=== PATIENT | male | born 1965 | race Caucasian/White ===

== ENCOUNTER 2019-07-12 18:35 | Observation (INO) | payer MEDICARE, MEDICAID ==
--- NOTE | 2019-07-12 18:46 | EDM.PDOC ---
ED HPI GENERAL MEDICAL PROBLEM <Angela Dillard - Last Filed: 07/12/19 21:54> - General Source of Information: Reports: EMS, Old Records History Limitations: Reports: No Limitations <ClaudiaSharrijania - Last Filed: 07/14/19 19:25> - General Chief Complaint: Behavioral/Psych Stated Complaint: POSIBBLE OVERDOSE Time Seen by Provider: 07/12/19 18:46 - History of Present Illness INITIAL COMMENTS - FREE TEXT/NARRATIVE: Patient is 53-year-old male brought in by EMS for complaints of altered mental status and concerns of a possible overdose. Per EMS, they received from: Patient was in his apartment. He found the patient to be minimally responsive. Patient was given 2 mg of Narcan intranasally with some increased responsiveness. The patient was combative with them spitting at them but not saying anything. Patient was somewhat following commands. They found numerous medications in his apartment and brought them with him. Pmhx: Unknown Pshx: Unknown Family Hx: noncontributory Drug and alcohol use unknown Review of systems unable to obtain secondary to mental status I have reviewed the triage vital signs Const: Appears older than stated age, in handcuffs repeatedly attempting to spit at staff and only partially following commands Eyes: Pupils are 4 mm and reactive bilaterally. No gaze deviation. No conjunctival injection HENT: NCAT, Neck supple without meningismus CV: RRR, Warm, well-perfused extremities RESP: CTAB, Unlabored respiratory effort GI: soft, non-tender, non-distended, no masses MSK: No gross deformities appreciated Skin: Warm, dry. No rashes Neuro: Awake but not alert. Moving all 4 extremities Psych: Unable to assess Assessment and plan: Patient is a 53-year-old male presents to the ER for altered mental status. On arrival in the ER, patient had normal fingerstick, normal vital signs but was agitated and noncooperative. History was unable to be obtained from the patient and only history was given by EMS. Patient required Haldol and Versed for chemical sedation while labs were performed. Broad differential diagnosis considered in the undifferentiated patient however overdoses higher on the differential given response to Narcan. Labs performed to examine for electrolyte abnormalities, hepatorenal dysfunction, salicylate and acetaminophen toxicity as well as TSH for thyrotoxicosis. CT of the head will be performed to look for evidence of intracranial hemorrhage. Patient will be closely monitored by nursing staff as well as incoming overnight talk will follow-up these tests and reexamine the patient if he becomes more alert. ( Manuel Taylor) - Related Data Allergies Allergy/AdvReac Type Severity Reaction Status Date / Time Unable to Assess Allergy Unverified 07/12/19 18:45 Home Meds: Home Meds . [Unable to Verify Home Med List] 07/12/19 [History] ED ROS GENERAL - Review of Systems Review Of Systems: See Below <Manuel Taylor - Last Filed: 07/14/19 19:25> - Physical Exam Exam: See Below <Manuel Taylor - Last Filed: 07/14/19 19:25> EKG INTERPRETATION EKG Date: 07/12/19 Time: 19:24 Rhythm: NSR [place]: RAD-Right [place] Deviation P-Wave: Present QRS: Normal QT: Normal <Angela Dillard - Last Filed: 07/12/19 21:54> <Manuel Taylor - Last Filed: 07/14/19 19:25> EKG Interpretation Comments: minimal non-acute st elevation v1-4 (Angela Dillard) Course <Angela Dillard - Last Filed: 07/12/19 21:54> <Manuel Taylor - Last Filed: 07/14/19 19:25> - Vital Signs Text/Narrative:: Pt signed out to myself at [address] and labs reviewed. UDS positive for benzos (UA was obtained after he had received Versed) . Ct head unremarkable. He became combative/thrashing and risk to himself and staff. Unable to be verbally deescalated, required additional Haldol 5 mg and Ativan 2 mg IM. Became briefly hypotensive after administration of meds which responded well to IVF Pt hemodynamically stable. Will require admission for possible overdose and observation as I can not medically clear him from a psychiatric point at this time. Case d/w DR. Del Rio who kindly agrees to admit for obs to ICU (Angela Dillard) Last Recorded V/S: Last Vital Signs Temp 36.2 C 07/13/19 04:00 Pulse 62 07/12/19 22:00 Resp 10 L 07/13/19 06:00 BP 221/143 H 07/13/19 06:00 Pulse Ox 95 07/13/19 06:00 - Orders/Labs/Meds Labs: Laboratory Tests 07/12/19 07/12/19 07/12/19 Range/Units 19:04 19:04 19:04 WBC 11.86 H (4.0-11.0) K/uL RBC 4.56 (4.50-5.90) M/uL Hgb 12.9 L (13.0-17.0) g/dL Hct 40.0 (38.0-50.0) % MCV 87.7 (80.0-98.0) fL MCH 28.3 (27.0-32.0) pg MCHC 32.3 (31.0-37.0) g/dL RDW Std Deviation 43.1 (28.0-62.0) fl RDW Coeff of Karishma 14 (11.0-15.0) % Plt Count 236 (150-400) K/uL MPV 10.90 (7.40-12.00) fL Neut % (Auto) 84.9 H (48.0-80.0) % Lymph % (Auto) 7.7 L (16.0-40.0) % [place] % (Auto) 6.4 (0.0-15.0) % Eos % (Auto) 0.8 (0.0-7.0) % Baso % (Auto) 0.2 (0.0-1.5) % Neut # (Auto) 10.1 H (1.4-5.7) K/uL Lymph # (Auto) 0.9 (0.6-2.4) K/uL [place]iss # (Auto) 0.8 (0.0-0.8) K/uL Eos # (Auto) 0.1 (0.0-0.7) K/uL Baso # (Auto) 0.0 (0.0-0.1) K/uL Nucleated RBC % 0.0 /100WBC Nucleated RBCs # 0 K/uL Sodium 135 L (136-148) mmol/L Potassium 5.1 (3.5-5.1) mmol/L Chloride 101 (98-107) mmol/L Carbon Dioxide 20.3 L (21.0-32.0) mmol/L BUN 32 H (7.0-18.0) mg/dL Creatinine 2.8 H (0.8-1.3) mg/dL Est Cr Clr Drug Dosing 28.69 mL/min Estimated GFR (MDRD) 23.6 ml/min Glucose 134 H (74-106) mg/dL Calcium 8.6 (8.5-10.1) mg/dL Magnesium 2.2 (1.8-2.4) mg/dL Total Bilirubin 0.3 (0.2-1.0) mg/dL AST 16 (15-37) IU/L ALT 16 (14-63) IU/L Alkaline Phosphatase 100 (46-116) U/L Creatine Kinase 69 (26-308) U/L Total Protein 6.6 (6.4-8.2) g/dL Albumin 3.3 L (3.4-5.0) g/dL Globulin 3.3 (2.6-4.0) g/dL Albumin/Globulin Ratio 1.0 (0.9-1.6) TSH 3rd Generation 1.25 (0.36-3.74) uIU/mL Urine Color Urine Appearance Urine pH (5.0-8.0) Ur Specific [place] (1.001-1.035) Urine Protein (NEGATIVE) mg/dL Urine Glucose (UA) (NEGATIVE) mg/dL Urine Ketones (NEGATIVE) mg/dL Urine Occult Blood (NEGATIVE) Urine Nitrite (NEGATIVE) Urine Bilirubin (NEGATIVE) Urine Urobilinogen (<2.0) EU/dL Ur Leukocyte Esterase (NEGATIVE) U Hyaline Cast (Auto) (0-2/LPF) Urine RBC (0-2/HPF) Urine WBC (0-5/HPF) Ur Epithelial Cells (NONE-FEW) Amorphous Sediment (NEGATIVE) Urine Bacteria (NEGATIVE) Urine Mucus (NONE-MOD) Salicylates 6.0 (0-20) mg/dL Urine Opiates Screen (NEGATIVE) Ur Oxycodone Screen (NEGATIVE) Urine Methadone Screen (NEGATIVE) Acetaminophen < 2.0 ug/mL Ur Barbiturates Screen (NEGATIVE) Ur Phencyclidine Scrn (NEGATIVE) Ur Amphetamine Screen (NEGATIVE) U Methamphetamines Scrn (NEGATIVE) U Benzodiazepines Scrn (NEGATIVE) U Cocaine Metab Screen (NEGATIVE) U Marijuana (THC) Screen (NEGATIVE) Ethyl Alcohol < 3.0 mg/dL 07/12/19 07/12/19 Range/Units 19:48 19:48 WBC (4.0-11.0) K/uL RBC (4.50-5.90) M/uL Hgb (13.0-17.0) g/dL Hct (38.0-50.0) % MCV (80.0-98.0) fL MCH (27.0-32.0) pg MCHC (31.0-37.0) g/dL RDW Std Deviation (28.0-62.0) fl RDW Coeff of Karishma (11.0-15.0) % Plt Count (150-400) K/uL MPV (7.40-12.00) fL Neut % (Auto) (48.0-80.0) % Lymph % (Auto) (16.0-40.0) % [place] % (Auto) (0.0-15.0) % Eos % (Auto) (0.0-7.0) % Baso % (Auto) (0.0-1.5) % Neut # (Auto) (1.4-5.7) K/uL Lymph # (Auto) (0.6-2.4) K/uL [place] # (Auto) (0.0-0.8) K/uL Eos # (Auto) (0.0-0.7) K/uL Baso # (Auto) (0.0-0.1) K/uL Nucleated RBC % /100WBC Nucleated RBCs # K/uL Sodium (136-148) mmol/L Potassium (3.5-5.1) mmol/L Chloride (98-107) mmol/L Carbon Dioxide (21.0-32.0) mmol/L BUN (7.0-18.0) mg/dL Creatinine (0.8-1.3) mg/dL Est Cr Clr Drug Dosing mL/min Estimated GFR (MDRD) ml/min Glucose (74-106) mg/dL Calcium (8.5-10.1) mg/dL Magnesium (1.8-2.4) mg/dL Total Bilirubin (0.2-1.0) mg/dL AST (15-37) IU/L ALT (14-63) IU/L Alkaline Phosphatase (46-116) U/L Creatine Kinase (26-308) U/L Total Protein (6.4-8.2) g/dL Albumin (3.4-5.0) g/dL Globulin (2.6-4.0) g/dL Albumin/Globulin Ratio (0.9-1.6) TSH 3rd Generation (0.36-3.74) uIU/mL Urine Color YELLOW Urine Appearance CLEAR Urine pH 5.0 (5.0-8.0) Ur Specific [place] >= 1.030 (1.001-1.035) Urine Protein NEGATIVE (NEGATIVE) mg/dL Urine Glucose (UA) NEGATIVE (NEGATIVE) mg/dL Urine Ketones NEGATIVE (NEGATIVE) mg/dL Urine Occult Blood NEGATIVE (NEGATIVE) Urine Nitrite NEGATIVE (NEGATIVE) Urine Bilirubin NEGATIVE (NEGATIVE) Urine Urobilinogen 0.2 (<2.0) EU/dL Ur Leukocyte Esterase NEGATIVE (NEGATIVE) U Hyaline Cast (Auto) 1-3 (0-2/LPF) Urine RBC 0-2 (0-2/HPF) Urine WBC 1-3 (0-5/HPF) Ur Epithelial Cells FEW (NONE-FEW) Amorphous Sediment MODERATE (NEGATIVE) Urine Bacteria FEW (NEGATIVE) Urine Mucus LIGHT (NONE-MOD) Salicylates (0-20) mg/dL Urine Opiates Screen POSITIVE (NEGATIVE) Ur Oxycodone Screen NEGATIVE (NEGATIVE) Urine Methadone Screen NEGATIVE (NEGATIVE) Acetaminophen ug/mL Ur Barbiturates Screen NEGATIVE (NEGATIVE) Ur Phencyclidine Scrn NEGATIVE (NEGATIVE) Ur Amphetamine Screen NEGATIVE (NEGATIVE) U Methamphetamines Scrn NEGATIVE (NEGATIVE) U Benzodiazepines Scrn POSITIVE (NEGATIVE) U Cocaine Metab Screen NEGATIVE (NEGATIVE) U Marijuana (THC) Screen NEGATIVE (NEGATIVE) Ethyl Alcohol mg/dL Meds: Medications Discontinued Medications Generic Name Dose Route Start Last Admin Trade Name Freq PRN Reason Stop Dose Admin Albuterol 10 mg 07/13/19 05:22 07/13/19 06:56 Proventil Neb Soln NEB 07/13/19 05:23 Not Given ONETIME ONE Benztropine Mesylate 1 mg 07/12/19 20:04 07/12/19 20:35 Cogentin IVPUSH 07/12/19 20:05 Not Given ONETIME ONE Dextrose/Water 50 ml 07/13/19 05:17 04/17/20 06:28 Dextrose 50% In Water IVPUSH 07/13/19 05:18 50 ml ONETIME ONE Administration Haloperidol Lactate 5 mg 07/12/19 18:51 07/12/19 18:52 Haldol IM 07/12/19 18:52 5 mg ONETIME ONE Administration Haloperidol Lactate Confirm 07/12/19 19:56 07/12/19 20:06 Haldol Administered 07/12/19 19:57 Not Given Dose 5 mg .ROUTE .STK-MED ONE Haloperidol Lactate 5 mg 07/12/19 19:57 07/12/19 20:11 Haldol IM 07/12/19 19:58 Not Given ONETIME ONE Haloperidol Lactate 5 mg 07/12/19 19:57 07/12/19 20:11 Haldol IM 07/12/19 19:58 5 mg ONETIME ONE Administration Haloperidol Lactate 5 mg 07/13/19 04:01 07/13/19 04:05 Haldol IM 07/13/19 04:02 5 mg ONETIME ONE Administration Sodium Chloride 1,000 mls @ 1,000 mls/hr 07/12/19 20:21 07/12/19 20:50 Normal Saline IV 07/12/19 21:20 1,000 mls/hr .Bolus ONE Administration Sodium Chloride 1,000 mls @ 999 mls/hr 07/12/19 21:14 07/12/19 21:16 Normal Saline IV 07/12/19 22:14 999 mls/hr .Bolus ONE Administration Sodium Chloride 1,000 mls @ 999 mls/hr 07/12/19 21:21 07/12/19 21:23 Normal Saline IV 07/12/19 22:21 999 mls/hr .Bolus ONE Administration Sodium Chloride 1,000 mls @ 125 mls/hr 07/12/19 23:15 07/12/19 23:57 Normal Saline IV 125 mls/hr ASDIRECTED ERIC Administration Midazolam HCl 50 mg/ Sodium 50 mls @ 0.5 mls/hr 07/13/19 05:15 Chloride IV TITRATE ERIC Protocol 0.5 MG/HR Propofol Confirm 07/13/19 05:49 07/13/19 06:32 Diprivan 100 Ml Administered 07/13/19 05:50 Not Given Dose 100 mls @ as directed .ROUTE .STK-MED ONE Propofol Confirm 07/13/19 05:51 07/13/19 06:32 Diprivan 100 Ml Administered 07/13/19 05:52 Not Given Dose 100 mls @ as directed .ROUTE .STK-MED ONE Propofol 100 mls @ 8.165 mls/hr 07/13/19 06:30 07/13/19 06:45 Diprivan 100 Ml IV 0 mcg/kg/min TITRATE ERIC 0 mls/hr Titration Protocol 20 MCG/KG/MIN Insulin Human Regular 10 unit 07/13/19 05:17 07/13/19 06:29 Novolin R IVPUSH 07/13/19 05:18 10 unit ONETIME ONE Administration Lorazepam Confirm 07/12/19 19:56 07/12/19 20:06 Ativan Administered 07/12/19 19:57 Not Given Dose 2 mg .ROUTE .STK-MED ONE Lorazepam 2 mg 07/12/19 20:00 07/12/19 20:12 Ativan IM 07/12/19 20:01 2 mg ONETIME ONE Administration Lorazepam 1 mg 07/13/19 04:04 07/13/19 04:39 Ativan IVPUSH 07/13/19 04:05 1 mg ONETIME ONE Administration Lorazepam Confirm 07/13/19 04:43 07/13/19 05:06 Ativan Administered 07/13/19 04:44 Not Given Dose 2 mg .ROUTE .STK-MED ONE Midazolam HCl 2 mg 07/12/19 18:51 07/12/19 18:52 Versed 1 Mg/Ml IVPUSH 07/12/19 18:52 2 mg ONETIME ONE Administration Midazolam HCl 2 mg 07/13/19 04:46 07/13/19 05:08 Versed 1 Mg/Ml IVPUSH 07/13/19 04:47 2 mg ONETIME ONE Administration Midazolam HCl Confirm 07/13/19 04:46 07/13/19 05:06 Versed 1 Mg/Ml Administered 07/13/19 04:47 Not Given Dose 2 mg .ROUTE .STK-MED ONE Midazolam HCl Confirm 07/13/19 05:16 07/13/19 06:15 Versed 1 Mg/Ml Administered 07/13/19 05:17 Not Given Dose 6 mg .ROUTE .STK-MED ONE Midazolam HCl Confirm 07/13/19 06:01 07/13/19 06:14 Versed 1 Mg/Ml Administered 07/13/19 06:02 2 mg Dose Administration 2 mg .ROUTE .STK-MED ONE Naloxone HCl 0.4 mg 07/12/19 23:51 Narcan IVPUSH ONETIME PRN Respiratory Depression Propofol Confirm 07/13/19 05:26 07/13/19 06:32 Diprivan 20 Ml Administered 07/13/19 05:27 Not Given Dose 200 mg .ROUTE .STK-MED ONE Departure - Departure Time of Disposition: 21:54 Condition: Good <Angela Dillard - Last Filed: 07/12/19 21:54> <Manuel Taylor - Last Filed: 07/14/19 19:25> - Departure Disposition: Refer to Observation Clinical Impression: Altered mental status Sepsis Event Note - Focused Exam Date Exam was Performed: 07/12/19 Time Exam was Performed: 21:54 <Angela Dillard - Last Filed: 07/12/19 21:54> - Evaluation Sepsis Screening Result: No Definite Risk - Focused Exam Date Exam was Performed: 07/14/19 Time Exam was Performed: 19:22 <Manuel Taylor - Last Filed: 07/14/19 19:25>
[2019-07-12] MEDS ORDERED: Haloperidol Lactate 5 MG/ML SDV IM ONE ×3 (18:51→19:57)
[2019-07-12] MEDS ORDERED: Midazolam 1 MG/ML 2 ML SDV IVPUSH ONE (18:51)
--- NOTE | 2019-07-12 19:23 | CT ---
Head CT Technique: Multiple axial sections through the brain were obtained. Intravenous contrast was not utilized. Comparison: No previous intracranial imaging is available. Findings: Ventricles along with basal cisterns and sulci over the convexities are within normal limits for the patient's age. No abnormal parenchymal densities are seen. No evidence of intracranial hemorrhage. No midline shift or mass effect is seen. Bone window settings were reviewed. Visualized mastoid sinuses and paranasal sinuses show nothing acute. No acute calvarial abnormality is appreciated. Impression: 1. Nothing acute is appreciated on noncontrast head CT exam. Diagnostic code #1 Study was dictated in MDT
--- NOTE | 2019-07-12 19:29 | CR ---
Chest: AP view of the chest was obtained. Comparison: No prior chest imaging is available. Heart size and mediastinum are normal. Surgical screws are partially seen within the right scapula. Lungs show no acute appearing parenchymal change. Impression: 1. Findings as noted above. 2. Nothing acute is appreciated on AP chest x-ray. Diagnostic code #2 Study was dictated in MDT
[2019-07-12 19:51] LABS: ACETAMINOPHEN < 2.0 ug/mL; BLOOD UREA NITROGEN,BUN 32 mg/dL (7.0-18.0); CARBON DIOXIDE,CO2 20.3 mmol/L (21.0-32.0); CHLORIDE,CL 101 mmol/L (98-107); GLUCOSE RANDOM 134 mg/dL (74-106); POTASSIUM,K 5.1 mmol/L (3.5-5.1); SODIUM,NA 135 mmol/L (136-148)
[2019-07-12] MEDS ORDERED: Haloperidol Lactate 5 MG/ML SDV ONE (19:56)
[2019-07-12] MEDS ORDERED: LORazepam 2 MG/ML SDV ONE (19:56)
[2019-07-12] MEDS ORDERED: LORazepam 2 MG/ML SDV IM ONE (20:00)
[2019-07-12] MEDS ORDERED: Sodium Chloride 0.9% 1,000 ML IV ONE ×3 (20:21→21:21)
[2019-07-12] MEDS ORDERED: Sodium Chloride 0.9% 1,000 ML IV SCH (23:15)
--- NOTE | 2019-07-12 23:22 | PCM.HP.2 ---
H&P History of Present Illness - General Date of Service: 07/12/19 Admit Problem/Dx: Admission Diagnosis/Problem Admission Diagnosis/Problem Altered mental status - History of Present Illness Initial Comments - Free Text/Narative: 53 yo male who was brought by EMS due to concerns of overdose. He was found minimally responsive in his apartment. He was given intranasal narcan. In the ED he was awake and combative given haldol. CT head performed was negative Urine screen shows benzodiazepine and opioids. He had several bottles of medicine non which were empty according to ED physician. At this moment we I am unable to find his medications. Patient did become combative in the ED again and was given haldol, ativan, versed. His blood pressure droped after this but has improved with IV fluid boluses. - Related Data Allergies/Adverse Reactions: Allergies Allergy/AdvReac Type Severity Reaction Status Date / Time Unable to Assess Allergy Unverified 07/12/19 18:45 Home Medications: Home Meds . [Unable to Verify Home Med List] 07/12/19 [History] Past Medical History HEENT History: Reports: Other (See Below) Other HEENT History: unable to assess Cardiovascular History: Reports: Other (See Below) Other Cardiovascular History: unable to assess Respiratory History: Reports: Other (See Below) Other Respiratory History: unable to assess Gastrointestinal History: Reports: Other (See Below) Other Gastrointestinal History: unable to assess Genitourinary History: Reports: Other (See Below) Other Genitourinary History: unable to assess Musculoskeletal History: Reports: Other (See Below) Other Musculoskeletal History: unable to assess Neurological History: Reports: Other (See Below) Other Neuro History: unable to assess Psychiatric History: Reports: Other (See Below) Other Psychiatric History: unable to assess Endocrine/Metabolic History: Reports: Other (See Below) Other Endocrine/Metabolic History: unable to assess Hematologic History: Reports: Other (See Below) Other Hematologic History: unable to assess Immunologic History: Reports: Other (See Below) Other Immunologic History: unable to assess Oncologic (Cancer) History: Reports: Other (See Below) Other Oncologic History: unable to assess Dermatologic History: Reports: Other (See Below) Other Dermatologic History: unable to assess - Infectious Disease History Infectious Disease History: Reports: Other (See Below) Other Infectious Disease History: unable to assess - Past Surgical History HEENT Surgical History: Reports: Other (See Below) Other HEENT Surgeries/Procedures: unable to assess Cardiovascular Surgical History: Reports: Other (See Below) Other Cardiovascular Surgeries/Procedures: unable to assess Respiratory Surgical History: Reports: Other (See Below) Other Respiratory Surgeries/Procedures: unable to assess GI Surgical History: Reports: Other (See Below) Other GI Surgeries/Procedures: unable to assess Male Surgical History: Reports: Other (See Below) Other Male Surgeries/Procedures: unable to assess Endocrine Surgical History: Reports: Other (See Below) Other Endocrine Surgeries/Procedures: unable to assess Neurological Surgical History: Reports: Other (See Below) Other Neurological Surgeries/Procedures: unable to assess Musculoskeletal Surgical History: Reports: Other (See Below) Other Musculoskeletal Surgeries/Procedures:: unable to assess Oncologic Surgical History: Reports: Other (See Below) Other Oncologic Surgeries/Procedures: unable to assess Dermatological Surgical History: Reports: Other (See Below) Social & Family History - Family History Family Medical History: Unobtainable - Tobacco Use Smoking Status *Q: Unknown Ever Smoked - Caffeine Use Caffeine Use Comment: unable to assess H&P Review of Systems - Review of Systems: Review Of Systems: Comprehensive ROS is negative, except as noted in HPI. Exam - Vital Signs Vital Signs: Last Vital Signs Temp 35.9 C L 07/12/19 22:00 Pulse 62 07/12/19 22:00 Resp 20 07/12/19 18:40 BP 89/59 L 07/12/19 22:00 Pulse Ox 100 07/12/19 22:00 Weight: 68.039 kg - Exam General: Sedated HEENT: Mucosa Moist & Gay, Pupils Equal, Pupils Reactive Lungs: Clear to Auscultation, Normal Respiratory Effort Cardiovascular: Regular Rate, Regular Rhythm GI/Abdominal Exam: Soft, Non-Tender, No Mass Extremities: Non-Tender, No Pedal Edema Skin: Warm, Dry, Intact Neurological: Other (obtuned, moving four limbs spotansously ) - Patient Data Lab Results Last 24 hrs: Laboratory Results - last 24 hr 07/12/19 07/12/19 07/12/19 Range/Units 19:04 19:04 19:04 WBC 11.86 H (4.0-11.0) K/uL RBC 4.56 (4.50-5.90) M/uL Hgb 12.9 L (13.0-17.0) g/dL Hct 40.0 (38.0-50.0) % MCV 87.7 (80.0-98.0) fL MCH 28.3 (27.0-32.0) pg MCHC 32.3 (31.0-37.0) g/dL RDW Std Deviation 43.1 (28.0-62.0) fl RDW Coeff of Karishma 14 (11.0-15.0) % Plt Count 236 (150-400) K/uL MPV 10.90 (7.40-12.00) fL Neut % (Auto) 84.9 H (48.0-80.0) % Lymph % (Auto) 7.7 L (16.0-40.0) % [place] % (Auto) 6.4 (0.0-15.0) % Eos % (Auto) 0.8 (0.0-7.0) % Baso % (Auto) 0.2 (0.0-1.5) % Neut # (Auto) 10.1 H (1.4-5.7) K/uL Lymph # (Auto) 0.9 (0.6-2.4) K/uL [place] # (Auto) 0.8 (0.0-0.8) K/uL Eos # (Auto) 0.1 (0.0-0.7) K/uL Baso # (Auto) 0.0 (0.0-0.1) K/uL Nucleated RBC % 0.0 /100WBC Nucleated RBCs # 0 K/uL Lactate (0.20-2.00) mmol/L Sodium 135 L (136-148) mmol/L Potassium 5.1 (3.5-5.1) mmol/L Chloride 101 (98-107) mmol/L Carbon Dioxide 20.3 L (21.0-32.0) mmol/L BUN 32 H (7.0-18.0) mg/dL Creatinine 2.8 H (0.8-1.3) mg/dL Est Cr Clr Drug Dosing 28.69 mL/min Estimated GFR (MDRD) 23.6 ml/min Glucose 134 H (74-106) mg/dL Calcium 8.6 (8.5-10.1) mg/dL Magnesium 2.2 (1.8-2.4) mg/dL Total Bilirubin 0.3 (0.2-1.0) mg/dL AST 16 (15-37) IU/L ALT 16 (14-63) IU/L Alkaline Phosphatase 100 (46-116) U/L Creatine Kinase 69 (26-308) U/L Total Protein 6.6 (6.4-8.2) g/dL Albumin 3.3 L (3.4-5.0) g/dL Globulin 3.3 (2.6-4.0) g/dL Albumin/Globulin Ratio 1.0 (0.9-1.6) TSH 3rd Generation 1.25 (0.36-3.74) uIU/mL Urine Color Urine Appearance Urine pH (5.0-8.0) Ur Specific [place] (1.001-1.035) Urine Protein (NEGATIVE) mg/dL Urine Glucose (UA) (NEGATIVE) mg/dL Urine Ketones (NEGATIVE) mg/dL Urine Occult Blood (NEGATIVE) Urine Nitrite (NEGATIVE) Urine Bilirubin (NEGATIVE) Urine Urobilinogen (<2.0) EU/dL Ur Leukocyte Esterase (NEGATIVE) U Hyaline Cast (Auto) (0-2/LPF) Urine RBC (0-2/HPF) Urine WBC (0-5/HPF) Ur Epithelial Cells (NONE-FEW) Amorphous Sediment (NEGATIVE) Urine Bacteria (NEGATIVE) Urine Mucus (NONE-MOD) Salicylates 6.0 (0-20) mg/dL Urine Opiates Screen (NEGATIVE) Ur Oxycodone Screen (NEGATIVE) Urine Methadone Screen (NEGATIVE) Acetaminophen < 2.0 ug/mL Ur Barbiturates Screen (NEGATIVE) Ur Phencyclidine Scrn (NEGATIVE) Ur Amphetamine Screen (NEGATIVE) U Methamphetamines Scrn (NEGATIVE) U Benzodiazepines Scrn (NEGATIVE) U Cocaine Metab Screen (NEGATIVE) U Marijuana (THC) Screen (NEGATIVE) Ethyl Alcohol < 3.0 mg/dL 07/12/19 07/12/19 07/12/19 Range/Units 19:48 19:48 22:49 WBC (4.0-11.0) K/uL RBC (4.50-5.90) M/uL Hgb (13.0-17.0) g/dL Hct (38.0-50.0) % MCV (80.0-98.0) fL MCH (27.0-32.0) pg MCHC (31.0-37.0) g/dL RDW Std Deviation (28.0-62.0) fl RDW Coeff of Karishma (11.0-15.0) % Plt Count (150-400) K/uL MPV (7.40-12.00) fL Neut % (Auto) (48.0-80.0) % Lymph % (Auto) (16.0-40.0) % [place] % (Auto) (0.0-15.0) % Eos % (Auto) (0.0-7.0) % Baso % (Auto) (0.0-1.5) % Neut # (Auto) (1.4-5.7) K/uL Lymph # (Auto) (0.6-2.4) K/uL [place] # (Auto) (0.0-0.8) K/uL Eos # (Auto) (0.0-0.7) K/uL Baso # (Auto) (0.0-0.1) K/uL Nucleated RBC % /100WBC Nucleated RBCs # K/uL Lactate 1.5 (0.20-2.00) mmol/L Sodium (136-148) mmol/L Potassium (3.5-5.1) mmol/L Chloride (98-107) mmol/L Carbon Dioxide (21.0-32.0) mmol/L BUN (7.0-18.0) mg/dL Creatinine (0.8-1.3) mg/dL Est Cr Clr Drug Dosing mL/min Estimated GFR (MDRD) ml/min Glucose (74-106) mg/dL Calcium (8.5-10.1) mg/dL Magnesium (1.8-2.4) mg/dL Total Bilirubin (0.2-1.0) mg/dL AST (15-37) IU/L ALT (14-63) IU/L Alkaline Phosphatase (46-116) U/L Creatine Kinase (26-308) U/L Total Protein (6.4-8.2) g/dL Albumin (3.4-5.0) g/dL Globulin (2.6-4.0) g/dL Albumin/Globulin Ratio (0.9-1.6) TSH 3rd Generation (0.36-3.74) uIU/mL Urine Color YELLOW Urine Appearance CLEAR Urine pH 5.0 (5.0-8.0) Ur Specific [place] >= 1.030 (1.001-1.035) Urine Protein NEGATIVE (NEGATIVE) mg/dL Urine Glucose (UA) NEGATIVE (NEGATIVE) mg/dL Urine Ketones NEGATIVE (NEGATIVE) mg/dL Urine Occult Blood NEGATIVE (NEGATIVE) Urine Nitrite NEGATIVE (NEGATIVE) Urine Bilirubin NEGATIVE (NEGATIVE) Urine Urobilinogen 0.2 (<2.0) EU/dL Ur Leukocyte Esterase NEGATIVE (NEGATIVE) U Hyaline Cast (Auto) 1-3 (0-2/LPF) Urine RBC 0-2 (0-2/HPF) Urine WBC 1-3 (0-5/HPF) Ur Epithelial Cells FEW (NONE-FEW) Amorphous Sediment MODERATE (NEGATIVE) Urine Bacteria FEW (NEGATIVE) Urine Mucus LIGHT (NONE-MOD) Salicylates (0-20) mg/dL Urine Opiates Screen POSITIVE (NEGATIVE) Ur Oxycodone Screen NEGATIVE (NEGATIVE) Urine Methadone Screen NEGATIVE (NEGATIVE) Acetaminophen ug/mL Ur Barbiturates Screen NEGATIVE (NEGATIVE) Ur Phencyclidine Scrn NEGATIVE (NEGATIVE) Ur Amphetamine Screen NEGATIVE (NEGATIVE) U Methamphetamines Scrn NEGATIVE (NEGATIVE) U Benzodiazepines Scrn POSITIVE (NEGATIVE) U Cocaine Metab Screen NEGATIVE (NEGATIVE) U Marijuana (THC) Screen NEGATIVE (NEGATIVE) Ethyl Alcohol mg/dL Result Diagrams: 07/12/19 19:04 07/12/19 19:04 Sepsis Event Note - Evaluation Sepsis Screening Result: No Definite Risk - Focused Exam Vital Signs: Vital Signs Temp Pulse Resp BP Pulse Ox 07/12/19 22:00 35.9 C L 62 89/59 L 100 07/12/19 21:47 56 L 90/60 07/12/19 21:38 58 L 88/55 L 100 07/12/19 21:24 60 80/48 L 100 07/12/19 21:18 59 L 76/44 L 100 07/12/19 21:10 57 L 74/43 L 100 07/12/19 21:03 62 74/42 L 99 07/12/19 20:55 61 73/45 L 98 07/12/19 20:51 67 79/47 L 98 07/12/19 20:40 68 80/51 L 98 07/12/19 20:26 67 73/47 L 98 07/12/19 20:11 96 137/88 98 07/12/19 19:25 84/54 L 98 07/12/19 18:56 61 91/53 L 98 07/12/19 18:41 68 138/87 91 L 07/12/19 18:40 36.1 C 63 20 138/87 91 L Date Exam was Performed: 07/12/19 Time Exam was Performed: 23:16 Problem List Initiated/Reviewed/Updated: Yes Orders Last 24hrs: Active Orders 24 hr Category Date Time Status Admission Status [Patient Status] [ADT] Stat ADT 07/12/19 21:52 Active Antiembolic Devices [RC] PER UNIT ROUTINE Care 07/12/19 23:12 Ordered EKG Documentation Completion [RC] STAT Care 07/12/19 18:41 Active Oxygen Therapy [RC] PRN Care 07/12/19 23:10 Ordered Up ad Mariela [RC] ASDIRECTED Care 07/12/19 23:10 Ordered VTE/DVT Education [RC] PER UNIT ROUTINE Care 07/12/19 23:10 Ordered CBC WITH AUTO DIFF [HEME] AM Lab 07/13/19 05:11 Ordered COMPREHENSIVE METABOLIC PN,CMP [CHEM] AM Lab 07/13/19 05:11 Ordered Sodium Chloride 0.9% @ 125 MLS/HR (1000ml) Med 07/12/19 23:15 Ordered Sodium Chloride 0.9% [Normal Saline] 1,000 ml IV ASDIRECTED Sequential Compression Device [OM.PC] Per Unit Routine Oth 07/12/19 23:11 Ordered Medication Orders Sodium Chloride (Normal Saline) 1,000 mls @ 125 mls/hr IV ASDIRECTED ERIC Assessment/Plan Comment:: 53 yo male admitted for altered mental status from possible drug overdose, who is now obtunded likely due to haldol and benzos given due to aggressive nature in ED. We will closely monitor in ICU.
[2019-07-12] MEDS ORDERED: Naloxone 0.4 MG/ML Syringe IVPUSH PRN (23:51)
--- NOTE | 2019-07-13 00:04 | PN ---
THC Physician - Brief Progress [id number]/16/2020 23:56[facility] Rebecca Benitez, PETE - [facility] - DIANELYS KATE DOBSONDate of Service 07/12/2019 23:56HPI/Events of Note eICU admission noteChief complaint-altered mental status.History of present illness A 53- year-old male with unknown medical history was admitted to the ICU because of altered mental status. He was found by the EMS in the house lethargic and was not able to wake up. He woke up with 2 mg of Narcan per the EMS. In the ER he was agitated and delirious and he received Ativan, Haldol and mida zolam. EMR reviewed. Video assessment completed. Currently he is drowsy and had few episodes of ap simone. Pinpoint pupils on examination. Urine drug screen positive for opiates and benzodiazepines. Sa licylate, Tylenol and alcohol within normal limits. CT head negative.eICU admission noteAltered ment al status probably secondary to overdose of opioids and benzodiazepines. Ordered PRN Narcan for respi ratory depression with respiratory rate less than 10. No need of flumazenil at this time yet. PRN Luis dol for delirium and anxiety. Ordered EKG. Collect more history once the patient is more alert and or iented. Recommend counseling.Case discussed with bedside nurse. Thank you for allowing us to partici gallego in your patient care.Interventions Major-Change in mental status - evaluation and management, De lirium, psychosis, severe agitation - evaluation and managementIntermediate-Communication with other healthcare providers and/or family, Medication change / dose adjustment
[2019-07-13] MEDS ORDERED: Haloperidol Lactate 5 MG/ML SDV IM ONE (04:01)
[2019-07-13] MEDS ORDERED: LORazepam 2 MG/ML SDV IVPUSH ONE (04:04)
[2019-07-13 04:24] LABS: CARBON DIOXIDE,CO2 20.4 mmol/L (21.0-32.0)
[2019-07-13 04:27] LABS: POTASSIUM,K 5.9 mmol/L (3.5-5.1)
[2019-07-13] MEDS ORDERED: LORazepam 2 MG/ML SDV ONE (04:43)
[2019-07-13] MEDS ORDERED: Midazolam 1 MG/ML 2 ML SDV IVPUSH ONE (04:46)
[2019-07-13] MEDS ORDERED: Midazolam 1 MG/ML 2 ML SDV ONE ×3 (04:46→06:01)
--- NOTE | 2019-07-13 05:13 | PN ---
THC Physician - Brief Progress [id number]/17/2020 05:11[facility], PETE - DIANELYS (TYSHAWN) - DIANELYS PEREZKATE GALLEGO KhrisDate of Service 07/13/2019 05:11HPI/Events of Note Patient may be going through opioid and benzo withdrawal.Already ordered Ativan and Haldol w hich has not helped much.Requiring 4 people to hold him down.Ordered 2 mg of IV Versed.Recommend intu bation and start the patient on propofol and fentanyl drips.Interventions Major-Delirium, psychosis, severe agitation - evaluation and management, Respiratory failure - evaluation and managementIntermed iate-Communication with other healthcare providers and/or family, Medication change / dose adjustment
[2019-07-13] MEDS ORDERED: Midazolam 50 MG in Sodium Chloride 0.9% 40 ML IV SCH (05:15)
[2019-07-13] MEDS ORDERED: Insulin Regular, Human 100 Units/ML 10 ML Vial IVPUSH ONE (05:17)
[2019-07-13] MEDS ORDERED: Albuterol 0.083% 2.5 MG/3 ML Neb Soln NEB ONE (05:22)
--- NOTE | 2019-07-13 05:23 | PN ---
THC Physician - Brief Progress [id number]/17/2020 05:20[facility] Rebecca zuñiga, PETE - DIANELYS (TYSHAWN) - DIANELYS DOBSONERICAARINA PinedoDate of Service 07/13/2019 05:20HPI/Events of Note Potassium increased from 5.1 to 5.9.Ordered medical management of hyperkalemia with the insu antwan, dextrose and high dose of albuterol.Be cautious with hyperkalemia while using the induction medi cations for intubation.Interventions Major-Electrolyte abnormality - evaluation and managementInterme diate-Communication with other healthcare providers and/or family, Medication change / dose adjustmen t
[2019-07-13] MEDS ORDERED: Propofol 200 MG/20 ML SDV ONE (05:26)
[2019-07-13] MEDS ORDERED: propofoL 100 ML ONE ×2 (05:49→05:51)
[2019-07-13] MEDS: 50% Dextrose in Water 50 ML Syringe IVPUSH ONE ×2 (06:15→06:28)
--- NOTE | 2019-07-13 06:15 | PCM.SN ---
- Free Text/Narrative Note: Called to ICU 3 for intubation. Pt was admitted earlier in the NOC for possible overdose of unknown substance/medications. Drug screen was positive for benzo's and opiates. Evolving hyperkalemia is noted. RSI Performed: Pre-intubation VS HR - 95 RR - 8 SpO2 - 91% on 6 LPM via NC BP - 74/36 Etomidate 20mg IVP Rocuronium 60mg IVP DL with Jenkins 2 yields grade I view with very dry mucus membranes and dried blood noted. +BBS +EtCO2. CXR and ABG pending. Post intubation VS HR - 110 RR - 10 SpO2 - 99% on 50% FiO2 BP - 220/110 Versed 2 mg IV additional given for sedation Propofol drip is being started. Vent settings VC TV 600 RR - 10 P - 5 PS - 10 FiO2 - 50% currently. VSS at this time. Transport team is en route. Anesthesia Time - [id number] TeleHealth - TeleHealth Patient Service Facility: [facility]: [facility] Informed Consent: Telemedicine Audio/Visual Informed Consent: The risks, benefits, and alternatives to the telehealth visit were explained to the patient and the patient consented to this modality of care. The telehealth visit was carried out via a secure, web-based conferencing system. This telemedicine service was a real-time, two-way interactive video and communication between the patient and the provider. All the parties involved were identified and approved by the patient prior to the visit. Any physical exam was assisted by the patient. Unless noted otherwise, the provider was located at their usual clinic location , and the patient was at their place of residence. Patient identity was confirmed by having the patient state their name and date of . All communications with the patient (verbal, audiovisual, and written) were documented in the patients medical record per documentation standards.
[2019-07-13] MEDS ORDERED: propofoL 100 ML IV SCH (06:30)
--- NOTE | 2019-07-13 06:39 | PCM.DCSUM1 ---
Discharge Summary - Discharge Data Discharge Date: 07/13/19 Discharge Disposition: Home, Self-Care 01 Condition: Stable - Referral to Home Health Primary Care Physician: PCP None - Patient Summary/Data Hospital Course: 53 yo male who was brought by EMS due to concerns of overdose. He was found minimally responsive in his apartment. He was given intranasal narcan. In the ED he was delirious. He was combative and would kick and spit. He was given haldol, ativan and versed to due to his agitated behaviors. CT head performed was negative. Urine screen shows benzodiazepine and opioids. He had several bottles of medicine none which were empty according to ED physician. He was transferee to the ICU for further monitoring. After morning lab draw he became agitated again requiring further sedating medications. He then developed apnea requiring intubation. He will need transfer to higher level of care due to his need for further mechanical ventilation. I called Dr. Solorzano at [facility] in [place] who has accepted the patient. - Discharge Plan Home Medications: Home Meds . [Unable to Verify Home Med List] 07/12/19 [History] Referrals: PCP,None [Primary Care Provider] - - Patient Data Vitals - Most Recent: Last Vital Signs Temp 35.9 C L 07/13/19 00:00 Pulse 62 07/12/19 22:00 Resp 13 07/13/19 03:00 BP 112/64 07/13/19 03:00 Pulse Ox 96 07/13/19 03:00 Weight - Most Recent: 68.039 kg Lab Results - Last 24 hrs: Laboratory Results - last 24 hr 07/12/19 07/12/19 07/12/19 Range/Units 19:04 19:04 19:04 WBC 11.86 H (4.0-11.0) K/uL RBC 4.56 (4.50-5.90) M/uL Hgb 12.9 L (13.0-17.0) g/dL Hct 40.0 (38.0-50.0) % MCV 87.7 (80.0-98.0) fL MCH 28.3 (27.0-32.0) pg MCHC 32.3 (31.0-37.0) g/dL RDW Std Deviation 43.1 (28.0-62.0) fl RDW Coeff of Karishma 14 (11.0-15.0) % Plt Count 236 (150-400) K/uL MPV 10.90 (7.40-12.00) fL Neut % (Auto) 84.9 H (48.0-80.0) % Lymph % (Auto) 7.7 L (16.0-40.0) % [place] % (Auto) 6.4 (0.0-15.0) % Eos % (Auto) 0.8 (0.0-7.0) % Baso % (Auto) 0.2 (0.0-1.5) % Neut # (Auto) 10.1 H (1.4-5.7) K/uL Lymph # (Auto) 0.9 (0.6-2.4) K/uL Routt # (Auto) 0.8 (0.0-0.8) K/uL Eos # (Auto) 0.1 (0.0-0.7) K/uL Baso # (Auto) 0.0 (0.0-0.1) K/uL Add Manual Diff Neutrophils % (Manual) (48.0-80.0) % Lymphocytes % (Manual) (16.0-40.0) % Monocytes % (Manual) (0.0-15.0) % Eosinophils % (Manual) (0.0-7.0) % Nucleated RBC % 0.0 /100WBC Absolute Seg Neuts (1.4-5.7) Lymphocytes # (Manual) (0.6-2.4) Monocytes # (Manual) (0.0-0.8) Eosinophils # (Manual) (0.0-0.7) Nucleated RBCs # 0 K/uL ABG pH (7.35-7.45) ABG pCO2 (35-45) mmHG ABG pO2 (75-100) mmHG ABG HCO3 (22-26) mEq/L ABG Total CO2 ABG Base Excess (-2.0-2.0) Lactate (0.20-2.00) mmol/L Sodium 135 L (136-148) mmol/L Potassium 5.1 (3.5-5.1) mmol/L Chloride 101 (98-107) mmol/L Carbon Dioxide 20.3 L (21.0-32.0) mmol/L BUN 32 H (7.0-18.0) mg/dL Creatinine 2.8 H (0.8-1.3) mg/dL Est Cr Clr Drug Dosing 28.69 mL/min Estimated GFR (MDRD) 23.6 ml/min Glucose 134 H (74-106) mg/dL POC Glucose (60-110) mg/dL Calcium 8.6 (8.5-10.1) mg/dL Magnesium 2.2 (1.8-2.4) mg/dL Total Bilirubin 0.3 (0.2-1.0) mg/dL AST 16 (15-37) IU/L ALT 16 (14-63) IU/L Alkaline Phosphatase 100 (46-116) U/L Creatine Kinase 69 (26-308) U/L Total Protein 6.6 (6.4-8.2) g/dL Albumin 3.3 L (3.4-5.0) g/dL Globulin 3.3 (2.6-4.0) g/dL Albumin/Globulin Ratio 1.0 (0.9-1.6) TSH 3rd Generation 1.25 (0.36-3.74) uIU/mL Urine Color Urine Appearance Urine pH (5.0-8.0) Ur Specific [place] (1.001-1.035) Urine Protein (NEGATIVE) mg/dL Urine Glucose (UA) (NEGATIVE) mg/dL Urine Ketones (NEGATIVE) mg/dL Urine Occult Blood (NEGATIVE) Urine Nitrite (NEGATIVE) Urine Bilirubin (NEGATIVE) Urine Urobilinogen (<2.0) EU/dL Ur Leukocyte Esterase (NEGATIVE) U Hyaline Cast (Auto) (0-2/LPF) Urine RBC (0-2/HPF) Urine WBC (0-5/HPF) Ur Epithelial Cells (NONE-FEW) Amorphous Sediment (NEGATIVE) Urine Bacteria (NEGATIVE) Urine Mucus (NONE-MOD) Salicylates 6.0 (0-20) mg/dL Urine Opiates Screen (NEGATIVE) Ur Oxycodone Screen (NEGATIVE) Urine Methadone Screen (NEGATIVE) Acetaminophen < 2.0 ug/mL Ur Barbiturates Screen (NEGATIVE) Ur Phencyclidine Scrn (NEGATIVE) Ur Amphetamine Screen (NEGATIVE) U Methamphetamines Scrn (NEGATIVE) U Benzodiazepines Scrn (NEGATIVE) U Cocaine Metab Screen (NEGATIVE) U Marijuana (THC) Screen (NEGATIVE) Ethyl Alcohol < 3.0 mg/dL 07/12/19 07/12/19 07/12/19 Range/Units 19:48 19:48 22:49 WBC (4.0-11.0) K/uL RBC (4.50-5.90) M/uL Hgb (13.0-17.0) g/dL Hct (38.0-50.0) % MCV (80.0-98.0) fL MCH (27.0-32.0) pg MCHC (31.0-37.0) g/dL RDW Std Deviation (28.0-62.0) fl RDW Coeff of Karishma (11.0-15.0) % Plt Count (150-400) K/uL MPV (7.40-12.00) fL Neut % (Auto) (48.0-80.0) % Lymph % (Auto) (16.0-40.0) % Routt % (Auto) (0.0-15.0) % Eos % (Auto) (0.0-7.0) % Baso % (Auto) (0.0-1.5) % Neut # (Auto) (1.4-5.7) K/uL Lymph # (Auto) (0.6-2.4) K/uL [place] # (Auto) (0.0-0.8) K/uL Eos # (Auto) (0.0-0.7) K/uL Baso # (Auto) (0.0-0.1) K/uL Add Manual Diff Neutrophils % (Manual) (48.0-80.0) % Lymphocytes % (Manual) (16.0-40.0) % Monocytes % (Manual) (0.0-15.0) % Eosinophils % (Manual) (0.0-7.0) % Nucleated RBC % /100WBC Absolute Seg Neuts (1.4-5.7) Lymphocytes # (Manual) (0.6-2.4) Monocytes # (Manual) (0.0-0.8) Eosinophils # (Manual) (0.0-0.7) Nucleated RBCs # K/uL ABG pH (7.35-7.45) ABG pCO2 (35-45) mmHG ABG pO2 (75-100) mmHG ABG HCO3 (22-26) mEq/L ABG Total CO2 ABG Base Excess (-2.0-2.0) Lactate 1.5 (0.20-2.00) mmol/L Sodium (136-148) mmol/L Potassium (3.5-5.1) mmol/L Chloride (98-107) mmol/L Carbon Dioxide (21.0-32.0) mmol/L BUN (7.0-18.0) mg/dL Creatinine (0.8-1.3) mg/dL Est Cr Clr Drug Dosing mL/min Estimated GFR (MDRD) ml/min Glucose (74-106) mg/dL POC Glucose (60-110) mg/dL Calcium (8.5-10.1) mg/dL Magnesium (1.8-2.4) mg/dL Total Bilirubin (0.2-1.0) mg/dL AST (15-37) IU/L ALT (14-63) IU/L Alkaline Phosphatase (46-116) U/L Creatine Kinase (26-308) U/L Total Protein (6.4-8.2) g/dL Albumin (3.4-5.0) g/dL Globulin (2.6-4.0) g/dL Albumin/Globulin Ratio (0.9-1.6) TSH 3rd Generation (0.36-3.74) uIU/mL Urine Color YELLOW Urine Appearance CLEAR Urine pH 5.0 (5.0-8.0) Ur Specific [place] >= 1.030 (1.001-1.035) Urine Protein NEGATIVE (NEGATIVE) mg/dL Urine Glucose (UA) NEGATIVE (NEGATIVE) mg/dL Urine Ketones NEGATIVE (NEGATIVE) mg/dL Urine Occult Blood NEGATIVE (NEGATIVE) Urine Nitrite NEGATIVE (NEGATIVE) Urine Bilirubin NEGATIVE (NEGATIVE) Urine Urobilinogen 0.2 (<2.0) EU/dL Ur Leukocyte Esterase NEGATIVE (NEGATIVE) U Hyaline Cast (Auto) 1-3 (0-2/LPF) Urine RBC 0-2 (0-2/HPF) Urine WBC 1-3 (0-5/HPF) Ur Epithelial Cells FEW (NONE-FEW) Amorphous Sediment MODERATE (NEGATIVE) Urine Bacteria FEW (NEGATIVE) Urine Mucus LIGHT (NONE-MOD) Salicylates (0-20) mg/dL Urine Opiates Screen POSITIVE (NEGATIVE) Ur Oxycodone Screen NEGATIVE (NEGATIVE) Urine Methadone Screen NEGATIVE (NEGATIVE) Acetaminophen ug/mL Ur Barbiturates Screen NEGATIVE (NEGATIVE) Ur Phencyclidine Scrn NEGATIVE (NEGATIVE) Ur Amphetamine Screen NEGATIVE (NEGATIVE) U Methamphetamines Scrn NEGATIVE (NEGATIVE) U Benzodiazepines Scrn POSITIVE (NEGATIVE) U Cocaine Metab Screen NEGATIVE (NEGATIVE) U Marijuana (THC) Screen NEGATIVE (NEGATIVE) Ethyl Alcohol mg/dL 07/13/19 07/13/19 07/13/19 Range/Units 03:40 03:40 06:00 WBC 12.49 H (4.0-11.0) K/uL RBC 4.19 L (4.50-5.90) M/uL Hgb 12.3 L (13.0-17.0) g/dL Hct 36.7 L (38.0-50.0) % MCV 87.6 (80.0-98.0) fL MCH 29.4 (27.0-32.0) pg MCHC 33.5 (31.0-37.0) g/dL RDW Std Deviation 43.8 (28.0-62.0) fl RDW Coeff of Karishma 14 (11.0-15.0) % Plt Count 263 (150-400) K/uL MPV 11.20 (7.40-12.00) fL Neut % (Auto) (48.0-80.0) % Lymph % (Auto) (16.0-40.0) % [place] % (Auto) (0.0-15.0) % Eos % (Auto) (0.0-7.0) % Baso % (Auto) (0.0-1.5) % Neut # (Auto) (1.4-5.7) K/uL Lymph # (Auto) (0.6-2.4) K/uL [place] # (Auto) (0.0-0.8) K/uL Eos # (Auto) (0.0-0.7) K/uL Baso # (Auto) (0.0-0.1) K/uL Add Manual Diff YES Neutrophils % (Manual) 79 (48.0-80.0) % Lymphocytes % (Manual) 16 (16.0-40.0) % Monocytes % (Manual) 4 (0.0-15.0) % Eosinophils % (Manual) 1 (0.0-7.0) % Nucleated RBC % 0.4 /100WBC Absolute Seg Neuts 9.9 H (1.4-5.7) Lymphocytes # (Manual) 2.0 (0.6-2.4) Monocytes # (Manual) 0.5 (0.0-0.8) Eosinophils # (Manual) 0.1 (0.0-0.7) Nucleated RBCs # 0 K/uL ABG pH 7.205 L (7.35-7.45) ABG pCO2 45 (35-45) mmHG ABG pO2 92 (75-100) mmHG ABG HCO3 18 L (22-26) mEq/L ABG Total CO2 16.8 ABG Base Excess -10.0 L (-2.0-2.0) Lactate (0.20-2.00) mmol/L Sodium 136 (136-148) mmol/L Potassium 5.9 H (3.5-5.1) mmol/L Chloride 106 (98-107) mmol/L Carbon Dioxide 20.4 L (21.0-32.0) mmol/L BUN 27 H (7.0-18.0) mg/dL Creatinine 2.0 H (0.8-1.3) mg/dL Est Cr Clr Drug Dosing 40.16 mL/min Estimated GFR (MDRD) 34.9 ml/min Glucose 90 (74-106) mg/dL POC Glucose (60-110) mg/dL Calcium 7.5 L (8.5-10.1) mg/dL Magnesium (1.8-2.4) mg/dL Total Bilirubin 0.4 (0.2-1.0) mg/dL AST 27 (15-37) IU/L ALT 18 (14-63) IU/L Alkaline Phosphatase 87 (46-116) U/L Creatine Kinase (26-308) U/L Total Protein 5.7 L (6.4-8.2) g/dL Albumin 2.6 L (3.4-5.0) g/dL Globulin 3.1 (2.6-4.0) g/dL Albumin/Globulin Ratio 0.8 L (0.9-1.6) TSH 3rd Generation (0.36-3.74) uIU/mL Urine Color Urine Appearance Urine pH (5.0-8.0) Ur Specific [place] (1.001-1.035) Urine Protein (NEGATIVE) mg/dL Urine Glucose (UA) (NEGATIVE) mg/dL Urine Ketones (NEGATIVE) mg/dL Urine Occult Blood (NEGATIVE) Urine Nitrite (NEGATIVE) Urine Bilirubin (NEGATIVE) Urine Urobilinogen (<2.0) EU/dL Ur Leukocyte Esterase (NEGATIVE) U Hyaline Cast (Auto) (0-2/LPF) Urine RBC (0-2/HPF) Urine WBC (0-5/HPF) Ur Epithelial Cells (NONE-FEW) Amorphous Sediment (NEGATIVE) Urine Bacteria (NEGATIVE) Urine Mucus (NONE-MOD) Salicylates (0-20) mg/dL Urine Opiates Screen (NEGATIVE) Ur Oxycodone Screen (NEGATIVE) Urine Methadone Screen (NEGATIVE) Acetaminophen ug/mL Ur Barbiturates Screen (NEGATIVE) Ur Phencyclidine Scrn (NEGATIVE) Ur Amphetamine Screen (NEGATIVE) U Methamphetamines Scrn (NEGATIVE) U Benzodiazepines Scrn (NEGATIVE) U Cocaine Metab Screen (NEGATIVE) U Marijuana (THC) Screen (NEGATIVE) Ethyl Alcohol mg/dL 07/13/19 Range/Units 06:24 WBC (4.0-11.0) K/uL RBC (4.50-5.90) M/uL Hgb (13.0-17.0) g/dL Hct (38.0-50.0) % MCV (80.0-98.0) fL MCH (27.0-32.0) pg MCHC (31.0-37.0) g/dL RDW Std Deviation (28.0-62.0) fl RDW Coeff of Karishma (11.0-15.0) % Plt Count (150-400) K/uL MPV (7.40-12.00) fL Neut % (Auto) (48.0-80.0) % Lymph % (Auto) (16.0-40.0) % [place] % (Auto) (0.0-15.0) % Eos % (Auto) (0.0-7.0) % Baso % (Auto) (0.0-1.5) % Neut # (Auto) (1.4-5.7) K/uL Lymph # (Auto) (0.6-2.4) K/uL [place] # (Auto) (0.0-0.8) K/uL Eos # (Auto) (0.0-0.7) K/uL Baso # (Auto) (0.0-0.1) K/uL Add Manual Diff Neutrophils % (Manual) (48.0-80.0) % Lymphocytes % (Manual) (16.0-40.0) % Monocytes % (Manual) (0.0-15.0) % Eosinophils % (Manual) (0.0-7.0) % Nucleated RBC % /100WBC Absolute Seg Neuts (1.4-5.7) Lymphocytes # (Manual) (0.6-2.4) Monocytes # (Manual) (0.0-0.8) Eosinophils # (Manual) (0.0-0.7) Nucleated RBCs # K/uL ABG pH (7.35-7.45) ABG pCO2 (35-45) mmHG ABG pO2 (75-100) mmHG ABG HCO3 (22-26) mEq/L ABG Total CO2 ABG Base Excess (-2.0-2.0) Lactate (0.20-2.00) mmol/L Sodium (136-148) mmol/L Potassium (3.5-5.1) mmol/L Chloride (98-107) mmol/L Carbon Dioxide (21.0-32.0) mmol/L BUN (7.0-18.0) mg/dL Creatinine (0.8-1.3) mg/dL Est Cr Clr Drug Dosing mL/min Estimated GFR (MDRD) ml/min Glucose (74-106) mg/dL POC Glucose 147 H (60-110) mg/dL Calcium (8.5-10.1) mg/dL Magnesium (1.8-2.4) mg/dL Total Bilirubin (0.2-1.0) mg/dL AST (15-37) IU/L ALT (14-63) IU/L Alkaline Phosphatase (46-116) U/L Creatine Kinase (26-308) U/L Total Protein (6.4-8.2) g/dL Albumin (3.4-5.0) g/dL Globulin (2.6-4.0) g/dL Albumin/Globulin Ratio (0.9-1.6) TSH 3rd Generation (0.36-3.74) uIU/mL Urine Color Urine Appearance Urine pH (5.0-8.0) Ur Specific [place] (1.001-1.035) Urine Protein (NEGATIVE) mg/dL Urine Glucose (UA) (NEGATIVE) mg/dL Urine Ketones (NEGATIVE) mg/dL Urine Occult Blood (NEGATIVE) Urine Nitrite (NEGATIVE) Urine Bilirubin (NEGATIVE) Urine Urobilinogen (<2.0) EU/dL Ur Leukocyte Esterase (NEGATIVE) U Hyaline Cast (Auto) (0-2/LPF) Urine RBC (0-2/HPF) Urine WBC (0-5/HPF) Ur Epithelial Cells (NONE-FEW) Amorphous Sediment (NEGATIVE) Urine Bacteria (NEGATIVE) Urine Mucus (NONE-MOD) Salicylates (0-20) mg/dL Urine Opiates Screen (NEGATIVE) Ur Oxycodone Screen (NEGATIVE) Urine Methadone Screen (NEGATIVE) Acetaminophen ug/mL Ur Barbiturates Screen (NEGATIVE) Ur Phencyclidine Scrn (NEGATIVE) Ur Amphetamine Screen (NEGATIVE) U Methamphetamines Scrn (NEGATIVE) U Benzodiazepines Scrn (NEGATIVE) U Cocaine Metab Screen (NEGATIVE) U Marijuana (THC) Screen (NEGATIVE) Ethyl Alcohol mg/dL Med Orders - Current: Current Medications Sodium Chloride (Normal Saline) 1,000 mls @ 125 mls/hr IV ASDIRECTED ERIC Last Admin: 07/12/19 23:57 Dose: 125 mls/hr Midazolam HCl 50 mg/ Sodium (Chloride) 50 mls @ 0.5 mls/hr IV TITRATE ERIC; Protocol Propofol (Diprivan 100 Ml) 100 mls @ 8.165 mls/hr IV TITRATE ERIC; Protocol Naloxone HCl (Narcan) 0.4 mg IVPUSH ONETIME PRN PRN Reason: Respiratory Depression Discontinued Medications Albuterol (Proventil Neb Soln) 10 mg NEB ONETIME ONE Stop: 07/13/19 05:23 Benztropine Mesylate (Cogentin) 1 mg IVPUSH ONETIME ONE Stop: 07/12/19 20:05 Last Admin: 07/12/19 20:35 Dose: Not Given Dextrose/Water (Dextrose 50% In Water) 50 ml IVPUSH ONETIME ONE Stop: 07/13/19 05:18 Last Admin: 07/13/19 06:28 Dose: 50 ml Haloperidol Lactate (Haldol) 5 mg IM ONETIME ONE Stop: 07/12/19 18:52 Last Admin: 07/12/19 18:52 Dose: 5 mg Haloperidol Lactate (Haldol) Confirm Administered Dose 5 mg .ROUTE .STK-MED ONE Stop: 07/12/19 19:57 Last Admin: 07/12/19 20:06 Dose: Not Given Haloperidol Lactate (Haldol) 5 mg IM ONETIME ONE Stop: 07/12/19 19:58 Last Admin: 07/12/19 20:11 Dose: Not Given Haloperidol Lactate (Haldol) 5 mg IM ONETIME ONE Stop: 07/12/19 19:58 Last Admin: 07/12/19 20:11 Dose: 5 mg Haloperidol Lactate (Haldol) 5 mg IM ONETIME ONE Stop: 07/13/19 04:02 Last Admin: 07/13/19 04:05 Dose: 5 mg Sodium Chloride (Normal Saline) 1,000 mls @ 1,000 mls/hr IV .Bolus ONE Stop: 07/12/19 21:20 Last Admin: 07/12/19 20:50 Dose: 1,000 mls/hr Sodium Chloride (Normal Saline) 1,000 mls @ 999 mls/hr IV .Bolus ONE Stop: 07/12/19 22:14 Last Admin: 07/12/19 21:16 Dose: 999 mls/hr Sodium Chloride (Normal Saline) 1,000 mls @ 999 mls/hr IV .Bolus ONE Stop: 07/12/19 22:21 Last Admin: 07/12/19 21:23 Dose: 999 mls/hr Propofol (Diprivan 100 Ml) Confirm Administered Dose 100 mls @ as directed .ROUTE .STK-MED ONE Stop: 07/13/19 05:50 Propofol (Diprivan 100 Ml) Confirm Administered Dose 100 mls @ as directed .ROUTE .STK-MED ONE Stop: 07/13/19 05:52 Insulin Human Regular (Novolin R) 10 unit IVPUSH ONETIME ONE Stop: 07/13/19 05:18 Last Admin: 07/13/19 06:29 Dose: 10 unit Lorazepam (Ativan) Confirm Administered Dose 2 mg .ROUTE .STK-MED ONE Stop: 07/12/19 19:57 Last Admin: 07/12/19 20:06 Dose: Not Given Lorazepam (Ativan) 2 mg IM ONETIME ONE Stop: 07/12/19 20:01 Last Admin: 07/12/19 20:12 Dose: 2 mg Lorazepam (Ativan) 1 mg IVPUSH ONETIME ONE Stop: 07/13/19 04:05 Last Admin: 07/13/19 04:39 Dose: 1 mg Lorazepam (Ativan) Confirm Administered Dose 2 mg .ROUTE .STK-MED ONE Stop: 07/13/19 04:44 Last Admin: 07/13/19 05:06 Dose: Not Given Midazolam HCl (Versed 1 Mg/Ml) 2 mg IVPUSH ONETIME ONE Stop: 07/12/19 18:52 Last Admin: 07/12/19 18:52 Dose: 2 mg Midazolam HCl (Versed 1 Mg/Ml) 2 mg IVPUSH ONETIME ONE Stop: 07/13/19 04:47 Last Admin: 07/13/19 05:08 Dose: 2 mg Midazolam HCl (Versed 1 Mg/Ml) Confirm Administered Dose 2 mg .ROUTE .STK-MED ONE Stop: 07/13/19 04:47 Last Admin: 07/13/19 05:06 Dose: Not Given Midazolam HCl (Versed 1 Mg/Ml) Confirm Administered Dose 6 mg .ROUTE .STK-MED ONE Stop: 07/13/19 05:17 Last Admin: 07/13/19 06:15 Dose: Not Given Midazolam HCl (Versed 1 Mg/Ml) Confirm Administered Dose 2 mg .ROUTE .STK-MED ONE Stop: 07/13/19 06:02 Last Admin: 07/13/19 06:14 Dose: 2 mg Propofol (Diprivan 20 Ml) Confirm Administered Dose 200 mg .ROUTE .STK-MED ONE Stop: 07/13/19 05:27
--- NOTE | 2019-07-13 06:51 | CR ---
INDICATION: Intubation. COMPARISON: none TECHNIQUE: Portable AP erect chest performed at 6:01 a.m. FINDINGS: The endotracheal tube lies in proper position with the tip 4.9 cm above the erasmo. The lungs are clear. There is no evidence of pneumothorax or mediastinal hematoma. Heart size appears normal. There is pulmonary vascular congestion I see no evidence of pulmonary edema or fluid within the peripheral interlobular septi. The patient is status post prior right reverse total shoulder arthroplasty. IMPRESSION: Proper endotracheal tube position. Dictated by Titi Garcia MD @ Jul 13 2019 6:46AM Signed by Dr. Titi Garcia @ Jul 13 2019 6:48AM
== END 2019-07-13 06:45 ==
LOC: MW.ED 18:35 → MW.ICU 21:52
PROVIDERS: ADMIT Internal Medicine; ATTEND Internal Medicine
DX: R41.82 Altered mental status, unspecified (principal); E87.5 Hyperkalemia; R45.1 Restlessness and agitation; R06.81 Apnea, not elsewhere classified
CPT/HCPCS: 36415; 36600; 70450; 71045; 80053; 80305; 80307; 81001; 82550; 82803; 82962; 83605; 83735; 84443; 85025; 93005; 94002; 96372; 96374; 99285; J1630; J1815; J2060; J2250; J2704; J7030; 31500; 96365; 96375; 96376; G0378

== ENCOUNTER 2019-08-12 21:01 | Emergency (ER) | payer MEDICARE, MEDICAID ==
[2019-08-12] MEDS ORDERED: Sodium Chloride 0.9% 1,000 ML IV ONE ×2 (21:15→22:26)
--- NOTE | 2019-08-12 21:21 | EDM.PDOCBH ---
ED HPI GENERAL MEDICAL PROBLEM - General Chief Complaint: Behavioral/Psych Stated Complaint: SUICIDAL Time Seen by Provider: 08/12/19 21:14 Source of Information: Reports: Patient History Limitations: Reports: No Limitations - History of Present Illness INITIAL COMMENTS - FREE TEXT/NARRATIVE: This is a 53-year-old male presenting to the emergency room with a chief complaint of being very depressed and attempting to kill himself. Patient states took 6 400 mg Seroquel tablets patient states he just got out of mental health on and has not been able to follow-up. Denies any chest pain shortness of breath or any physical problems at this time Onset: Today Duration: Hour(s): (1) Location: Reports: Generalized Severity: Moderate Worsens with: Reports: None Context: Reports: Other (Severely depressed attempting suicide) Associated Symptoms: Reports: No Other Symptoms Bilateral Lower Foot Pain Score (Numeric/FACES): 7 - Related Data Allergies Allergy/AdvReac Type Severity Reaction Status Date / Time Unable to Assess Allergy Verified 08/12/19 21:17 Home Meds: Home Meds . [Unable to Verify Home Med List] 07/12/19 [History] Past Medical History HEENT History: Reports: Other (See Below) Other HEENT History: unable to assess Cardiovascular History: Reports: Other (See Below) Other Cardiovascular History: unable to assess Respiratory History: Reports: Other (See Below) Other Respiratory History: unable to assess Gastrointestinal History: Reports: Other (See Below) Other Gastrointestinal History: unable to assess Genitourinary History: Reports: Other (See Below) Other Genitourinary History: unable to assess Musculoskeletal History: Reports: Other (See Below) Other Musculoskeletal History: unable to assess Neurological History: Reports: Other (See Below) Other Neuro History: unable to assess Psychiatric History: Reports: Other (See Below) Other Psychiatric History: unable to assess Endocrine/Metabolic History: Reports: Other (See Below) Other Endocrine/Metabolic History: unable to assess Hematologic History: Reports: Other (See Below) Other Hematologic History: unable to assess Immunologic History: Reports: Other (See Below) Other Immunologic History: unable to assess Oncologic (Cancer) History: Reports: Other (See Below) Other Oncologic History: unable to assess Dermatologic History: Reports: Other (See Below) Other Dermatologic History: unable to assess - Infectious Disease History Infectious Disease History: Reports: Other (See Below) Other Infectious Disease History: unable to assess - Past Surgical History HEENT Surgical History: Reports: Other (See Below) Other HEENT Surgeries/Procedures: unable to assess Cardiovascular Surgical History: Reports: Other (See Below) Other Cardiovascular Surgeries/Procedures: unable to assess Respiratory Surgical History: Reports: Other (See Below) Other Respiratory Surgeries/Procedures: unable to assess GI Surgical History: Reports: Other (See Below) Other GI Surgeries/Procedures: unable to assess Male Surgical History: Reports: Other (See Below) Other Male Surgeries/Procedures: unable to assess Endocrine Surgical History: Reports: Other (See Below) Other Endocrine Surgeries/Procedures: unable to assess Neurological Surgical History: Reports: Other (See Below) Other Neurological Surgeries/Procedures: unable to assess Musculoskeletal Surgical History: Reports: Other (See Below) Other Musculoskeletal Surgeries/Procedures:: unable to assess Oncologic Surgical History: Reports: Other (See Below) Other Oncologic Surgeries/Procedures: unable to assess Dermatological Surgical History: Reports: Other (See Below) Social & Family History - Family History Family Medical History: Unobtainable - Caffeine Use Caffeine Use Comment: unable to assess ED ROS GENERAL - Review of Systems Review Of Systems: See Below Constitutional: Reports: No Symptoms HEENT: Reports: No Symptoms Respiratory: Reports: No Symptoms Cardiovascular: Reports: No Symptoms Endocrine: Reports: No Symptoms GI/Abdominal: Reports: No Symptoms : Reports: No Symptoms Musculoskeletal: Reports: No Symptoms Skin: Reports: No Symptoms Neurological: Reports: No Symptoms Psychiatric: Reports: Depression, Mood Lability, Suicidal Ideation Hematologic/Lymphatic: Reports: No Symptoms Immunologic: Reports: No Symptoms ED EXAM, BEHAVIORAL HEALTH - Physical Exam Exam: See Below Exam Limited By: No Limitations General Appearance: Alert, WD/WN, No Apparent Distress Eye Exam: Bilateral Eye: Normal Fundi, Normal Inspection Ears: Normal External Exam, Normal Canal, Hearing Grossly Normal, Normal TMs Nose: Normal Inspection, Normal Mucosa, No Blood Throat/Mouth: Normal Inspection, Normal Lips, Normal Teeth, Normal Gums, Normal Oropharynx, Normal Voice, No Airway Compromise Head: Atraumatic, Normocephalic Neck: Normal Inspection, Supple, Non-Tender, Full Range of Motion Respiratory/Chest: No Respiratory Distress, Lungs Clear, Normal Breath Sounds, No Accessory Muscle Use, Chest Non-Tender Cardiovascular: Normal Peripheral Pulses, Regular Rate, Rhythm, No Edema, No Gallop, No JVD, No Murmur, No Rub GI/Abdominal: Normal Bowel Sounds, Soft, Non-Tender, No Organomegaly, No Distention, No Abnormal Bruit, No Mass (Male) Exam: Deferred Back Exam: Normal Inspection, Full Range of Motion, NT Extremities: Normal Inspection, Normal Range of Motion, Non-Tender, Normal Capillary Refill, No Pedal Edema Neurological: Alert, Normal Mood/Affect, CN II-XII Intact, Normal Cognition, Normal Gait, Normal Reflexes, No Motor/Sensory Deficits, Oriented x 3 Psychiatric: Depressed Mood, Suicidal Plan, Suicidal Thoughts Skin Exam: Warm, Dry, Intact, Normal color, No rash COURSE, BEHAVIORAL HEALTH COMP - Course Vital Signs: Last Vital Signs Temp 97.4 F 08/12/19 21:10 Pulse 87 08/13/19 02:16 Resp 18 08/13/19 02:16 BP 113/87 08/13/19 02:16 Pulse Ox 98 08/13/19 02:16 53-year-old gentleman presents the emergency room after taking 640 mg Seroquel in an attempt to kill himself. Patient has recently been discharged from a psych facility on 07/27/2019. Since that time the patient has not received any mental health. The patient feels like he needs to kill himself at this time by take the medication. We have discussed the case with poison control and they they suggest we observe the patient for 6 hours. During this observation the patient's tox screen shows benzodiazepine and nothing else. Patient's CBC and electrolytes are normal and patient's vital signs have been stable. Patient has been accepted by Dr. Solorzano in [place] the psychiatrist change control analyst. The patient is medically cleared Orders, Labs, Meds: Active Orders 24 hr Category Date Time Status EKG Documentation Completion [RC] STAT Care 08/12/19 21:09 Active Laboratory Tests 08/12/19 08/12/19 08/12/19 Range/Units 21:07 21:07 23:45 WBC 10.55 (4.0-11.0) K/uL RBC 4.67 (4.50-5.90) M/uL Hgb 13.7 (13.0-17.0) g/dL Hct 41.5 (38.0-50.0) % MCV 88.9 (80.0-98.0) fL MCH 29.3 (27.0-32.0) pg MCHC 33.0 (31.0-37.0) g/dL RDW Std Deviation 47.0 (28.0-62.0) fl RDW Coeff of Karishma 15 (11.0-15.0) % Plt Count 210 (150-400) K/uL MPV 10.70 (7.40-12.00) fL Neut % (Auto) 61.1 (48.0-80.0) % Lymph % (Auto) 28.8 (16.0-40.0) % [place] % (Auto) 7.9 (0.0-15.0) % Eos % (Auto) 2.1 (0.0-7.0) % Baso % (Auto) 0.1 (0.0-1.5) % Neut # (Auto) 6.5 H (1.4-5.7) K/uL Lymph # (Auto) 3.0 H (0.6-2.4) K/uL [place] # (Auto) 0.8 (0.0-0.8) K/uL Eos # (Auto) 0.2 (0.0-0.7) K/uL Baso # (Auto) 0.0 (0.0-0.1) K/uL Nucleated RBC % 0.0 /100WBC Nucleated RBCs # 0 K/uL Sodium 135 L (136-148) mmol/L Potassium 3.2 L (3.5-5.1) mmol/L Chloride 98 (98-107) mmol/L Carbon Dioxide 24.7 (21.0-32.0) mmol/L BUN 8 (7.0-18.0) mg/dL Creatinine 1.3 (0.8-1.3) mg/dL Est Cr Clr Drug Dosing 68.38 mL/min Estimated GFR (MDRD) 57.3 ml/min Glucose 113 H (74-106) mg/dL Calcium 8.4 L (8.5-10.1) mg/dL Total Bilirubin 0.7 (0.2-1.0) mg/dL AST 16 (15-37) IU/L ALT 21 (14-63) IU/L Alkaline Phosphatase 118 H (46-116) U/L Total Protein 7.1 (6.4-8.2) g/dL Albumin 3.6 (3.4-5.0) g/dL Globulin 3.5 (2.6-4.0) g/dL Albumin/Globulin Ratio 1.0 (0.9-1.6) TSH 3rd Generation 2.72 (0.36-3.74) uIU/mL Urine Color YELLOW Urine Appearance CLEAR Urine pH 5.5 (5.0-8.0) Ur Specific [place] >= 1.030 (1.001-1.035) Urine Protein NEGATIVE (NEGATIVE) mg/dL Urine Glucose (UA) NEGATIVE (NEGATIVE) mg/dL Urine Ketones NEGATIVE (NEGATIVE) mg/dL Urine Occult Blood NEGATIVE (NEGATIVE) Urine Nitrite NEGATIVE (NEGATIVE) Urine Bilirubin NEGATIVE (NEGATIVE) Urine Urobilinogen 0.2 (<2.0) EU/dL Ur Leukocyte Esterase NEGATIVE (NEGATIVE) Salicylates 3.1 (0-20) mg/dL Urine Opiates Screen (NEGATIVE) Ur Oxycodone Screen (NEGATIVE) Urine Methadone Screen (NEGATIVE) Acetaminophen <2.0 ug/mL Ur Barbiturates Screen (NEGATIVE) Ur Phencyclidine Scrn (NEGATIVE) Ur Amphetamine Screen (NEGATIVE) U Methamphetamines Scrn (NEGATIVE) U Benzodiazepines Scrn (NEGATIVE) U Cocaine Metab Screen (NEGATIVE) U Marijuana (THC) Screen (NEGATIVE) Ethyl Alcohol <3 mg/dL 08/12/19 Range/Units 23:45 WBC (4.0-11.0) K/uL RBC (4.50-5.90) M/uL Hgb (13.0-17.0) g/dL Hct (38.0-50.0) % MCV (80.0-98.0) fL MCH (27.0-32.0) pg MCHC (31.0-37.0) g/dL RDW Std Deviation (28.0-62.0) fl RDW Coeff of Karishma (11.0-15.0) % Plt Count (150-400) K/uL MPV (7.40-12.00) fL Neut % (Auto) (48.0-80.0) % Lymph % (Auto) (16.0-40.0) % [place] % (Auto) (0.0-15.0) % Eos % (Auto) (0.0-7.0) % Baso % (Auto) (0.0-1.5) % Neut # (Auto) (1.4-5.7) K/uL Lymph # (Auto) (0.6-2.4) K/uL [place] # (Auto) (0.0-0.8) K/uL Eos # (Auto) (0.0-0.7) K/uL Baso # (Auto) (0.0-0.1) K/uL Nucleated RBC % /100WBC Nucleated RBCs # K/uL Sodium (136-148) mmol/L Potassium (3.5-5.1) mmol/L Chloride (98-107) mmol/L Carbon Dioxide (21.0-32.0) mmol/L BUN (7.0-18.0) mg/dL Creatinine (0.8-1.3) mg/dL Est Cr Clr Drug Dosing mL/min Estimated GFR (MDRD) ml/min Glucose (74-106) mg/dL Calcium (8.5-10.1) mg/dL Total Bilirubin (0.2-1.0) mg/dL AST (15-37) IU/L ALT (14-63) IU/L Alkaline Phosphatase (46-116) U/L Total Protein (6.4-8.2) g/dL Albumin (3.4-5.0) g/dL Globulin (2.6-4.0) g/dL Albumin/Globulin Ratio (0.9-1.6) TSH 3rd Generation (0.36-3.74) uIU/mL Urine Color Urine Appearance Urine pH (5.0-8.0) Ur Specific [place] (1.001-1.035) Urine Protein (NEGATIVE) mg/dL Urine Glucose (UA) (NEGATIVE) mg/dL Urine Ketones (NEGATIVE) mg/dL Urine Occult Blood (NEGATIVE) Urine Nitrite (NEGATIVE) Urine Bilirubin (NEGATIVE) Urine Urobilinogen (<2.0) EU/dL Ur Leukocyte Esterase (NEGATIVE) Salicylates (0-20) mg/dL Urine Opiates Screen NEGATIVE (NEGATIVE) Ur Oxycodone Screen NEGATIVE (NEGATIVE) Urine Methadone Screen NEGATIVE (NEGATIVE) Acetaminophen ug/mL Ur Barbiturates Screen NEGATIVE (NEGATIVE) Ur Phencyclidine Scrn NEGATIVE (NEGATIVE) Ur Amphetamine Screen NEGATIVE (NEGATIVE) U Methamphetamines Scrn NEGATIVE (NEGATIVE) U Benzodiazepines Scrn POSITIVE (NEGATIVE) U Cocaine Metab Screen NEGATIVE (NEGATIVE) U Marijuana (THC) Screen NEGATIVE (NEGATIVE) Ethyl Alcohol mg/dL Medications Discontinued Medications Generic Name Dose Route Start Last Admin Trade Name Candelarioq PRN Reason Stop Dose Admin Sodium Chloride 1,000 mls @ 1,000 mls/hr 08/12/19 21:15 08/12/19 22:23 Normal Saline IV 08/12/19 22:14 1,000 mls/hr .Bolus ONE Administration Sodium Chloride 1,000 mls @ 1,000 mls/hr 08/12/19 22:26 08/12/19 23:11 Normal Saline IV 08/12/19 23:25 1,000 mls/hr .Bolus ONE Administration Lorazepam 1 mg 08/12/19 21:43 08/12/19 23:20 Ativan IVPUSH 08/12/19 21:44 Not Given ONETIME ONE Departure - Departure Time of Disposition: 02:54 Disposition: DC/Tfer to Acute Hospital 02 Condition: Good Clinical Impression: Self-harm, Suicidal ideation - Discharge Information Forms: ED Department Discharge Sepsis Event Note - Focused Exam Vital Signs: Vital Signs Temp Pulse Resp BP Pulse Ox 08/13/19 02:16 87 18 113/87 98 08/13/19 01:58 18 127/80 98 08/13/19 00:03 118/83 08/12/19 23:04 89 105/75 92 L 08/12/19 22:33 98 96/64 92 L 08/12/19 22:04 78/51 L 08/12/19 21:34 123 H 98/60 95 08/12/19 21:10 97.4 F 87 17 124/82 93 L 08/12/19 21:05 90 124/82 99 Date Exam was Performed: 08/13/19 Time Exam was Performed: 02:52
[2019-08-12] MEDS ORDERED: LORazepam 2 MG/ML SDV IVPUSH ONE (21:43)
[2019-08-12 21:45] LABS: BLOOD UREA NITROGEN,BUN 8 mg/dL (7.0-18.0); CARBON DIOXIDE,CO2 24.7 mmol/L (21.0-32.0); CHLORIDE,CL 98 mmol/L (98-107); GLUCOSE RANDOM 113 mg/dL (74-106); POTASSIUM,K 3.2 mmol/L (3.5-5.1); SODIUM,NA 135 mmol/L (136-148)
[2019-08-12 21:46] LABS: ACETAMINOPHEN <2.0 ug/mL
--- NOTE | 2019-08-12 21:47 | CR ---
INDICATION: chest pain CHEST, ONE VIEW An AP radiograph of the chest was performed. Comparison: 07/13/2019. The lungs appear clear and no pleural effusions are identified. The cardiomediastinal silhouette and pulmonary vasculature appear normal, as do the visualized bones aside from prior right shoulder arthroplasty. IMPRESSION: No acute intrathoracic abnormality identified. BRITTNEY LICEA MD [facility] Dictated by: Christ Licea MD @ 08/12/2019 21:46:35 (Electronically Signed)
== END 2019-08-13 04:02 ==
LOC: MW.ED 21:01
DX: T43.592A Poisoning by other antipsychotics and neuroleptics, intentional self-harm, initial encounter (principal); F32.9 Major depressive disorder, single episode, unspecified
CPT/HCPCS: 36415; 71045; 80053; 80305; 80307; 81003; 84443; 85025; 93005; 99285; J7030; 99283